=== PATIENT | female | born 1960 | race Caucasian/White ===

== ENCOUNTER 2017-03-05 02:29 | Inpatient (IN) | payer MEDICAID ==
[~2017-03-05] VITALS: Ht 157.5 cm; Wt 68.1 kg
[~2017-03-05 02:29] MED LIST: ALBU8.5H3 INH; AMLO10TA2 PO; AMOX1TAB64 PO; CLIN75CA2 PO; CYCL5TAB PO; HYDR-3138 PO; HYDR25TA6 PO; LISI40TA PO; LORA-445 PO; NAPR500T8 PO; OMEP-110 PO; PRED20TA PO; PRED25PO10 PO; PRED5TAB PO
[2017-03-05] MEDS ORDERED: ALBUTEROL/IPRATROPIUM 2.5MG/0.5MG, 3 ML ONE (02:43)
[2017-03-05] MEDS ORDERED: TIOT18CA INH (03:03)
[2017-03-05 03:28] LABS: HEMOGLOBIN 13.4 g/dL (11.7-16.4)
[2017-03-05 03:32] LABS: BLOOD UREA NITROGEN 13 mg/dL (7-18)
[2017-03-05 03:43] LABS: IS PT STATUS REG ER OR PRE ER? YES
[2017-03-05] MEDS ORDERED: FUROSEMIDE 40 MG/4 ML ONE (04:18)
[2017-03-05] MEDS ORDERED: ONDANSETRON 2MG/ML, 2ML IVPush PRN (04:30)
[2017-03-05] MEDS ORDERED: FUROSEMIDE 40 MG/4 ML IV ONE (04:30)
[2017-03-05] MEDS ORDERED: LORazepam 0.5MG TABLET PO PRN (06:00)
[2017-03-05] MEDS ORDERED: LABETALOL 5MG/ML, 20ML IV PRN (06:00)
[2017-03-05] MEDS ORDERED: POLYETHYLENE GLYCOL 17 GM PACKET PO PRN (06:00)
[2017-03-05] MEDS ORDERED: BISACODYL 10 MG SUPP PR PRN (06:00)
[2017-03-05] MEDS ORDERED: DOCUSATE 100 MG CAPSULE PO PRN (06:00)
[2017-03-05] MEDS ORDERED: ONDANSETRON ODT 4 MG PO PRN (06:00)
[2017-03-05] MEDS ORDERED: ENOXAPARIN 40 MG/0.4 ML ONE (06:14)
[2017-03-05] MEDS: ENOXAPARIN 40 MG/0.4 ML SQ SCH (06:16)
[2017-03-05 07:35] VITALS: BP 153/106
[2017-03-05] MEDS: ACETAMINOPHEN 325 MG TABLET PO PRN ×2 (08:08→20:57)
[2017-03-05] MEDS: FUROSEMIDE 40 MG/4 ML IV SCH ×2 (08:08→17:49)
[2017-03-05 08:10] VITALS: BP 133/90
[2017-03-05] MEDS: AMLODIPINE 5 MG TABLET PO SCH (09:43)
[2017-03-05] MEDS: OMEPRAZOLE 20 MG CAPSULE.DR PO SCH (09:43)
[2017-03-05] MEDS: CYCLOBENZAPRINE 10 MG TABLET PO SCH ×2 (09:43→20:38)
[2017-03-05] MEDS: LISINOPRIL 20 MG TABLET PO SCH (09:43)
[2017-03-05] MEDS: IPRATROPIUM 0.5 MG/2.5 ML INHA HHN SCH ×3 (11:15→20:26)
[2017-03-05 13:43] VITALS: BP 132/83
[2017-03-05 20:15] VITALS: BP 135/75
[2017-03-05 20:17] VITALS: BP 135/75
[2017-03-06] VITALS (7 sets, daily range): BP systolic 100–141; BP diastolic 62–78
[2017-03-06] MEDS: IPRATROPIUM 0.5 MG/2.5 ML INHA HHN SCH ×4 (03:00→20:00)
[2017-03-06] MEDS: ENOXAPARIN 40 MG/0.4 ML SQ SCH (06:15)
[2017-03-06] MEDS: FUROSEMIDE 40 MG/4 ML IV SCH ×2 (08:38→17:36)
[2017-03-06] MEDS: LISINOPRIL 20 MG TABLET PO SCH (08:41)
[2017-03-06] MEDS: CYCLOBENZAPRINE 10 MG TABLET PO SCH ×2 (08:41→20:23)
[2017-03-06] MEDS: AMLODIPINE 5 MG TABLET PO SCH (08:41)
[2017-03-06] MEDS: OMEPRAZOLE 20 MG CAPSULE.DR PO SCH (08:41)
[2017-03-06 12:01] LABS: BLOOD UREA NITROGEN 27 mg/dL (7-18)
[2017-03-06 12:12] LABS: IS PT STATUS REG ER OR PRE ER? NO
[2017-03-06] MEDS: ACETAMINOPHEN 325 MG TABLET PO PRN (15:59)
[2017-03-06] MEDS: CARVEDILOL 3.125 MG TABLET PO SCH (17:36)
[2017-03-06] MEDS: ATORVASTATIN 40 MG TABLET PO SCH (20:23)
[2017-03-07 01:21] VITALS: BP 112/71
[2017-03-07] MEDS: IPRATROPIUM 0.5 MG/2.5 ML INHA HHN SCH ×4 (02:10→19:40)
[2017-03-07 05:47] VITALS: BP 126/80
[2017-03-07 05:48] LABS: BLOOD UREA NITROGEN 34 mg/dL (7-18)
[2017-03-07] MEDS: ENOXAPARIN 40 MG/0.4 ML SQ SCH (05:51)
[2017-03-07] MEDS: CARVEDILOL 3.125 MG TABLET PO SCH ×2 (05:51→17:13)
[2017-03-07 07:00] VITALS: BP 112/73
[2017-03-07] MEDS: FUROSEMIDE 40 MG/4 ML IV SCH (07:30)
[2017-03-07] MEDS: CYCLOBENZAPRINE 10 MG TABLET PO SCH ×2 (08:26→20:52)
[2017-03-07] MEDS: OMEPRAZOLE 20 MG CAPSULE.DR PO SCH (08:27)
[2017-03-07] MEDS: LISINOPRIL 20 MG TABLET PO SCH (08:27)
[2017-03-07] MEDS: ACETAMINOPHEN 325 MG TABLET PO PRN ×2 (08:27→17:15)
[2017-03-07] MEDS: FUROSEMIDE 20 MG TABLET PO SCH (08:27)
[2017-03-07 13:42] VITALS: BP 120/76
[2017-03-07] MEDS ORDERED: POTASSIUM CHLORIDE 20 MEQ TAB.ER.PRT PO ONE (15:00)
[2017-03-07 15:38] LABS: BLOOD UREA NITROGEN 32 mg/dL (7-18)
[2017-03-07 17:12] VITALS: BP 122/81
[2017-03-07 18:52] VITALS: BP 106/70
[2017-03-07] MEDS: ATORVASTATIN 40 MG TABLET PO SCH (20:51)
[2017-03-08] MEDS: IPRATROPIUM 0.5 MG/2.5 ML INHA HHN SCH ×4 (02:25→21:05)
[2017-03-08 03:04] VITALS: BP 123/80
[2017-03-08] MEDS: CARVEDILOL 3.125 MG TABLET PO SCH ×2 (05:24→18:40)
[2017-03-08] MEDS: ENOXAPARIN 40 MG/0.4 ML SQ SCH (05:25)
[2017-03-08 07:33] VITALS: BP 112/73
[2017-03-08] MEDS ORDERED: REGADENOSON 0.4 MG/5 ML SYRINGE ONE (08:36)
[2017-03-08] MEDS: OMEPRAZOLE 20 MG CAPSULE.DR PO SCH (10:48)
[2017-03-08] MEDS: LISINOPRIL 20 MG TABLET PO SCH (10:48)
[2017-03-08] MEDS: CYCLOBENZAPRINE 10 MG TABLET PO SCH ×2 (10:48→20:47)
[2017-03-08] MEDS: FUROSEMIDE 20 MG TABLET PO SCH (10:48)
[2017-03-08 10:51] VITALS: BP 120/78
[2017-03-08 14:09] VITALS: BP 145/65
[2017-03-08 18:38] VITALS: BP 111/65
[2017-03-08 19:20] VITALS: BP 111/66
[2017-03-08] MEDS: ATORVASTATIN 40 MG TABLET PO SCH (20:47)
[2017-03-09 01:26] VITALS: BP 114/69
[2017-03-09] MEDS: IPRATROPIUM 0.5 MG/2.5 ML INHA HHN SCH ×2 (02:52→09:00)
[2017-03-09 05:07] LABS: HEMOGLOBIN 12.8 g/dL (11.7-16.4)
[2017-03-09 05:16] LABS: BLOOD UREA NITROGEN 31 mg/dL (7-18)
[2017-03-09] MEDS: CARVEDILOL 3.125 MG TABLET PO SCH (06:07)
[2017-03-09] MEDS: ENOXAPARIN 40 MG/0.4 ML SQ SCH (06:07)
[2017-03-09] MEDS: ACETAMINOPHEN 325 MG TABLET PO PRN (06:13)
[2017-03-09 06:56] VITALS: BP 122/76
[2017-03-09] MEDS: OMEPRAZOLE 20 MG CAPSULE.DR PO SCH (07:56)
[2017-03-09] MEDS: LISINOPRIL 20 MG TABLET PO SCH (07:56)
[2017-03-09] MEDS: FUROSEMIDE 20 MG TABLET PO SCH (07:57)
[2017-03-09] MEDS: CYCLOBENZAPRINE 10 MG TABLET PO SCH (07:57)
[2017-03-09 12:53] VITALS: BP 127/78
[2017-03-09] MEDS ORDERED: METH4TAB2 PO (13:27)
[2017-03-09] MEDS ORDERED: FURO20TA3 PO (13:27)
[2017-03-09] MEDS ORDERED: ATOR40TA78 PO (13:27)
[2017-03-09] MEDS ORDERED: POTA20TA89 PO (15:42)
[2017-03-09] MEDS ORDERED: CARV3.1212 PO (15:52)
== END 2017-03-09 16:28 | disposition home or self-care (01) | DRG 291 ==
LOC: ED 03:26 → EDIP 04:23 → 5SO 07:25 → DCLOUNGE 03-09 15:27
PROVIDERS: ADMIT Internal Medicine; ATTEND Internal Medicine
DX: I13.0 Hypertensive heart and chronic kidney disease with heart failure and stage 1 through stage 4 chronic kidney disease, or unspecified chronic kidney disease (principal); I50.41 Acute combined systolic (congestive) and diastolic (congestive) heart failure; J44.1 Chronic obstructive pulmonary disease with (acute) exacerbation; G89.29 Other chronic pain; M54.2 Cervicalgia; M54.9 Dorsalgia, unspecified; I42.9 Cardiomyopathy, unspecified; I27.2 Other secondary pulmonary hypertension; N18.3 Chronic kidney disease, stage 3 (moderate); R00.8 Other abnormalities of heart beat; F17.210 Nicotine dependence, cigarettes, uncomplicated; Z82.49 Family history of ischemic heart disease and other diseases of the circulatory system; Z98.51 Tubal ligation status; Z90.89 Acquired absence of other organs; Z88.7 Allergy status to serum and vaccine; Z79.899 Other long term (current) drug therapy; Z91.19 Patient's noncompliance with other medical treatment and regimen
CPT/HCPCS: 36415; 71010; 78452; 80048; 80061; 82040; 83880; 84443; 84484; 85025; 93005; 93017; 93306; 94640; 96372; 96374; J1650; J1940; J2785; J7644; A9502; C9898; J7512

== ENCOUNTER 2017-03-11 10:23 | Inpatient (IN) | payer MEDICAID ==
[~2017-03-11] VITALS: Ht 157.5 cm; Wt 67.7 kg
[~2017-03-11 10:23] MED LIST changes: +ATOR40TA78 PO; +CARV3.1212 PO; +FURO20TA3 PO; +METH4TAB2 PO; +POTA20TA89 PO; +TIOT18CA INH
[2017-03-11] MEDS ORDERED: SODIUM CHLORIDE FLUSH 10ML SYR IVF ONE (10:30)
[2017-03-11] MEDS ORDERED: PLEASE ENTER HEIGHT AND WEIGHT MC SCH (11:00)
[2017-03-11 11:11] LABS: BLOOD UREA NITROGEN 28 mg/dL (7-18)
[2017-03-11 11:16] LABS: ASPARTATE AMINO TRANSFERASE 8 U/L (15-37)
[2017-03-11 11:17] LABS: IS PT STATUS REG ER OR PRE ER? YES
[2017-03-11] MEDS ORDERED: NITROGLYCERIN OINT 2%, 1GM TP ONE ×2 (11:30→12:04)
[2017-03-11] MEDS ORDERED: FUROSEMIDE 40 MG/4 ML ONE (12:16)
[2017-03-11] MEDS ORDERED: FUROSEMIDE 40 MG/4 ML IV ONE (12:30)
[2017-03-11] MEDS ORDERED: POLYETHYLENE GLYCOL 17 GM PACKET PO PRN (13:00)
[2017-03-11] MEDS ORDERED: LORazepam 1MG TABLET PO PRN (13:00)
[2017-03-11] MEDS ORDERED: LABETALOL 5MG/ML, 20ML IVPush PRN (13:00)
[2017-03-11] MEDS ORDERED: ACETAMINOPHEN 325 MG TABLET PO PRN (13:00)
[2017-03-11] MEDS ORDERED: ENALAPRILAT 1.25 MG/ML, 2ML IV PRN (13:00)
[2017-03-11] MEDS ORDERED: MORPHINE SULFATE 4 MG/ML, 1ML IVPush PRN (13:00)
[2017-03-11] MEDS ORDERED: GUAIFENESIN/DM 200-20MG, 10ML UDC PO PRN (13:00)
[2017-03-11] MEDS ORDERED: LORazepam 0.5MG TABLET PO PRN (13:00)
[2017-03-11] MEDS ORDERED: DOCUSATE 100 MG CAPSULE PO PRN (13:00)
[2017-03-11] MEDS ORDERED: hydrALAzine 20 MG/ML, 1ML IV PRN (13:00)
[2017-03-11] MEDS ORDERED: ALBUTEROL SULFATE 2.5 MG/3 ML NPPB PRN (15:00)
[2017-03-11] MEDS ORDERED: ALBUTEROL/IPRATROPIUM 2.5MG/0.5MG, 3 ML ONE ×2 (15:02→19:54)
[2017-03-11] MEDS: POTASSIUM CHLORIDE 20 MEQ TAB.ER.PRT PO SCH (15:30)
[2017-03-11] MEDS ORDERED: IPRATROPIUM 0.5 MG/2.5 ML INHA NPPB SCH (15:30)
[2017-03-11] MEDS ORDERED: ALBUTEROL/IPRATROPIUM 2.5MG/0.5MG, 3 ML NPPB PRN (15:30)
[2017-03-11 15:31] LABS: IS PT STATUS REG ER OR PRE ER? YES
[2017-03-11] MEDS: LISINOPRIL 20 MG TABLET PO SCH (15:31)
[2017-03-11] MEDS: FUROSEMIDE 20 MG TABLET PO SCH (15:31)
[2017-03-11] MEDS ORDERED: LORazepam 0.5MG TABLET ONE (15:37)
[2017-03-11] MEDS: ENOXAPARIN 40 MG/0.4 ML SQ SCH (15:39)
[2017-03-11] MEDS: FUROSEMIDE 40 MG/4 ML IV SCH (17:00)
[2017-03-11] MEDS: ALBUTEROL/IPRATROPIUM 2.5MG/0.5MG, 3 ML NPPB SCH (19:57)
[2017-03-11] MEDS ORDERED: CARVEDILOL 3.125 MG TABLET PO SCH (21:00)
[2017-03-11] MEDS: SODIUM CHLORIDE FLUSH 10ML SYR IVF SCH (21:00)
[2017-03-11 21:46] LABS: IS PT STATUS REG ER OR PRE ER? NO
[2017-03-11] MEDS: CYCLOBENZAPRINE 10 MG TABLET PO SCH (22:37)
[2017-03-11] MEDS: ATORVASTATIN 40 MG TABLET PO SCH (23:39)
[2017-03-11] MEDS: CARVEDILOL 6.25 MG TABLET PO SCH (23:39)
[2017-03-12 02:10] VITALS: BP 112/63
[2017-03-12] MEDS: HYDROcodone/APAP 5/325 TABLET PO PRN ×2 (04:41→12:23)
[2017-03-12 05:05] LABS: BLOOD UREA NITROGEN 48 mg/dL (7-18)
[2017-03-12] MEDS: CARVEDILOL 6.25 MG TABLET PO SCH ×3 (06:00→21:13)
[2017-03-12 06:30] VITALS: BP 106/73
[2017-03-12] MEDS: ALBUTEROL/IPRATROPIUM 2.5MG/0.5MG, 3 ML NPPB SCH (07:51)
[2017-03-12] MEDS: CYCLOBENZAPRINE 10 MG TABLET PO SCH ×2 (08:02→21:09)
[2017-03-12] MEDS: LISINOPRIL 20 MG TABLET PO SCH (08:03)
[2017-03-12] MEDS: SODIUM CHLORIDE FLUSH 10ML SYR IVF SCH ×2 (08:03→21:09)
[2017-03-12] MEDS: SENNA/DOCUSATE TABLET PO SCH (08:03)
[2017-03-12] MEDS: POTASSIUM CHLORIDE 20 MEQ TAB.ER.PRT PO SCH (08:03)
[2017-03-12] MEDS: FUROSEMIDE 40 MG/4 ML IV SCH (08:03)
[2017-03-12] MEDS: FUROSEMIDE 20 MG TABLET PO SCH (08:05)
[2017-03-12] MEDS ORDERED: FUROSEMIDE 20 MG TABLET PO SCH (09:00)
[2017-03-12 09:13] VITALS: BP 97/63
[2017-03-12] MEDS: ENOXAPARIN 40 MG/0.4 ML SQ SCH (12:23)
[2017-03-12 14:04] VITALS: BP 98/67
[2017-03-12] MEDS: ONDANSETRON 2MG/ML, 2ML IVP PRN (19:39)
[2017-03-12] MEDS: ATORVASTATIN 40 MG TABLET PO SCH (21:10)
[2017-03-12 21:33] VITALS: BP 84/51
[2017-03-13 03:41] VITALS: BP 94/59
[2017-03-13] MEDS: CARVEDILOL 6.25 MG TABLET PO SCH ×3 (05:42→20:52)
[2017-03-13 05:59] LABS: BLOOD UREA NITROGEN 63 mg/dL (7-18)
[2017-03-13 07:07] VITALS: BP 92/62
[2017-03-13] MEDS: HYDROcodone/APAP 5/325 TABLET PO PRN ×3 (08:00→20:52)
[2017-03-13] MEDS: LISINOPRIL 20 MG TABLET PO SCH (09:00)
[2017-03-13 10:57] VITALS: BP 95/64
[2017-03-13] MEDS: SENNA/DOCUSATE TABLET PO SCH (10:59)
[2017-03-13] MEDS: POTASSIUM CHLORIDE 20 MEQ TAB.ER.PRT PO SCH (10:59)
[2017-03-13] MEDS: CYCLOBENZAPRINE 10 MG TABLET PO SCH ×2 (11:01→20:51)
[2017-03-13] MEDS: SODIUM CHLORIDE FLUSH 10ML SYR IVF SCH ×2 (11:01→20:51)
[2017-03-13] MEDS ORDERED: ENOXAPARIN 30 MG/0.3 ML SQ SCH (13:00)
[2017-03-13 14:00] VITALS: BP 99/66
[2017-03-13] MEDS: ONDANSETRON 2MG/ML, 2ML IVP PRN (15:31)
[2017-03-13 19:25] VITALS: BP 105/72
[2017-03-13] MEDS: ATORVASTATIN 40 MG TABLET PO SCH (20:52)
[2017-03-14 02:46] VITALS: BP 131/72
[2017-03-14 05:35] LABS: BLOOD UREA NITROGEN 52 mg/dL (7-18)
[2017-03-14] MEDS: CARVEDILOL 6.25 MG TABLET PO SCH ×3 (05:41→22:04)
[2017-03-14 07:40] VITALS: BP 104/67
[2017-03-14] MEDS: SENNA/DOCUSATE TABLET PO SCH (09:00)
[2017-03-14] MEDS ORDERED: SODIUM CHLORIDE 0.9% 1,000 ML IV ONE (09:39)
[2017-03-14] MEDS: CYCLOBENZAPRINE 10 MG TABLET PO SCH ×2 (10:26→22:03)
[2017-03-14] MEDS: POTASSIUM CHLORIDE 20 MEQ TAB.ER.PRT PO SCH (10:26)
[2017-03-14] MEDS: SODIUM CHLORIDE FLUSH 10ML SYR IVF SCH ×2 (10:27→22:02)
[2017-03-14] MEDS: HYDROcodone/APAP 5/325 TABLET PO PRN ×3 (10:34→23:51)
[2017-03-14] MEDS: ENOXAPARIN 40 MG/0.4 ML SQ SCH (12:50)
[2017-03-14] MEDS ORDERED: FENTANYL PF 100 MCG/2ML ONE ×2 (13:09→14:27)
[2017-03-14] MEDS ORDERED: MIDAZOLAM 1 MG/ML, 5ML ONE (13:09)
[2017-03-14] MEDS ORDERED: LIDOCAINE 2%, 20ML ONE (13:10)
[2017-03-14] MEDS ORDERED: TICAGRELOR 90 MG TABLET ONE (13:10)
[2017-03-14] MEDS ORDERED: VERAPAMIL 2.5 MG/ML, 2ML ONE (13:10)
[2017-03-14] MEDS ORDERED: HEPARIN 1,000 UNITS/ML, 10ML ONE (13:10)
[2017-03-14] MEDS ORDERED: BIVALIRUDIN 250 MG ONE (13:10)
[2017-03-14 14:59] VITALS: BP 127/85
[2017-03-14 15:39] VITALS: BP 111/72
[2017-03-14 19:56] VITALS: BP 103/68
[2017-03-14] MEDS: ATORVASTATIN 40 MG TABLET PO SCH (22:03)
[2017-03-15 01:30] VITALS: BP 103/67
[2017-03-15] MEDS: HYDROcodone/APAP 5/325 TABLET PO PRN ×3 (05:46→17:57)
[2017-03-15] MEDS: CARVEDILOL 6.25 MG TABLET PO SCH ×2 (05:46→15:08)
[2017-03-15 07:40] VITALS: BP 110/69
[2017-03-15] MEDS: SENNA/DOCUSATE TABLET PO SCH (09:00)
[2017-03-15] MEDS ORDERED: OMEPRAZOLE 20 MG CAPSULE.DR PO SCH (09:00)
[2017-03-15] MEDS: POTASSIUM CHLORIDE 20 MEQ TAB.ER.PRT PO SCH (09:44)
[2017-03-15] MEDS: CYCLOBENZAPRINE 10 MG TABLET PO SCH (09:44)
[2017-03-15] MEDS: SODIUM CHLORIDE FLUSH 10ML SYR IVF SCH (09:45)
[2017-03-15] MEDS ORDERED: FUROSEMIDE 20 MG TABLET PO SCH (10:30)
[2017-03-15 11:37] VITALS: BP 127/76
[2017-03-15 14:04] VITALS: BP 130/79
[2017-03-15] MEDS: ENOXAPARIN 40 MG/0.4 ML SQ SCH (15:08)
== END 2017-03-15 18:39 | disposition home or self-care (01) | DRG 286 ==
LOC: ED 10:44 → EDIP 12:15 → 5SO 20:43
PROVIDERS: ADMIT Family Medicine; ATTEND Family Medicine
PROC: 4A023N7 Measurement of Cardiac Sampling and Pressure, Left Heart, Percutaneous Approach (ICD-10-PCS; principal; 2017-03-14)
PROC: B2111ZZ Fluoroscopy of Multiple Coronary Arteries using Low Osmolar Contrast (ICD-10-PCS; 2017-03-14)
DX: I13.0 Hypertensive heart and chronic kidney disease with heart failure and stage 1 through stage 4 chronic kidney disease, or unspecified chronic kidney disease (principal); I50.43 Acute on chronic combined systolic (congestive) and diastolic (congestive) heart failure; J44.1 Chronic obstructive pulmonary disease with (acute) exacerbation; I42.9 Cardiomyopathy, unspecified; N18.3 Chronic kidney disease, stage 3 (moderate); M41.9 Scoliosis, unspecified; I27.2 Other secondary pulmonary hypertension; G89.29 Other chronic pain; E78.5 Hyperlipidemia, unspecified; M54.2 Cervicalgia; M54.9 Dorsalgia, unspecified; Z88.7 Allergy status to serum and vaccine; Z79.899 Other long term (current) drug therapy; Z90.89 Acquired absence of other organs; Z98.51 Tubal ligation status; Z91.19 Patient's noncompliance with other medical treatment and regimen; Z87.891 Personal history of nicotine dependence
CPT/HCPCS: 36415; 71010; 80048; 80053; 83880; 84484; 85025; 85610; 85730; 87324; 93005; 93458; 94640; 96374; C1769; C1894; J0583; J1644; J1650; J1940; J2250; J2405; J3010; J3490; J7620; J7644; Q9967

== ENCOUNTER 2018-05-26 05:12 | Emergency (ER) | payer MEDICAID ==
[~2018-05-26] VITALS: Ht 157.5 cm; Wt 80.0 kg
[~2018-05-26 05:12] MED LIST changes: -ALBU8.5H3 INH; +ALBU8.5H8 INH; -HYDR-3138 PO; +HYDR-3237 PO
[2018-05-26] MEDS ORDERED: ONDANSETRON ODT 4 MG ONE (05:34)
[2018-05-26] MEDS ORDERED: HYDROmorphone 2 MG/ML, 1ML ONE (05:35)
[2018-05-26] MEDS: HYDROmorphone 1 MG/ML, 1ML IM PRN ×2 (05:43→05:58)
[2018-05-26] MEDS ORDERED: ONDANSETRON ODT 4 MG PO ONE (06:00)
[2018-05-26] MEDS ORDERED: SODIUM CHLORIDE FLUSH 10ML SYR IVF ONE (07:00)
[2018-05-26] MEDS ORDERED: CARV12.52 PO (07:20)
[2018-05-26] MEDS ORDERED: LISI-170 PO (07:20)
[2018-05-26 07:26] LABS: BASOPHILS # (AUTO) 0.02 x10^3/uL (0-0.1); BASOPHILS % (AUTO) 0 % (0-1); EOSINOPHILS # (AUTO) 0.15 x10^3/uL (0-0.4); EOSINOPHILS % (AUTO) 2 % (1-7); LYMPHOCYTES % (AUTO) 40 % (22-44); MD NO; MEAN CORPUSCULAR HEMOGLOBIN 32.6 pg (27.0-34.8); MEAN CORPUSCULAR HGB CONC 33.6 g/dL (32.4-35.8); MEAN CORPUSCULAR VOLUME 97.1 fL (80-100); MEAN PLATELET VOLUME 7.9 fL (7.4-10.4); MONOCYTES # (AUTO) 0.41 x10^3/uL (0.2-0.8); MONOCYTES % (AUTO) 7 % (2-9); NEUTROPHILS # (AUTO) 3.05 x10^3/uL (1.8-6.8); NEUTROPHILS % (AUTO) 51 % (42-75); PLATELET COUNT 298 x10^3/uL (130-400); RED BLOOD COUNT 4.24 x10^6/uL (3.82-5.3); RED CELL DISTRIBUTION WIDTH 13.8 % (9.6-15.2)
[2018-05-26 07:38] LABS: ANION GAP 7 mmol/L (5-15); CHLORIDE 112 mmol/L (98-107)
[2018-05-26 07:40] LABS: CREATININE 1.09 mg/dL (0.55-1.02)
[2018-05-26] MEDS ORDERED: [UNRECOGNIZED DRUG - REMARK] XX SCH (08:30)
[2018-05-26] MEDS ORDERED: MORPHINE SULFATE 4 MG/ML, 1ML IVPush ONE (08:30)
[2018-05-26] MEDS ORDERED: MORPHINE SULFATE 4 MG/ML, 1ML ONE (08:34)
[2018-05-26] MEDS ORDERED: OMNIPAQUE 350 MG/ML, 100ML BOTTLE ONE (08:51)
[2018-05-26] MEDS ORDERED: HYDROcodone/APAP 5/325 TABLET ONE (09:10)
[2018-05-26 09:12] VITALS: BP 154/90
[2018-05-26] MEDS ORDERED: HYDROcodone/APAP 5/325 TABLET PO ONE (09:30)
== END 2018-05-26 09:37 | disposition home or self-care (01) ==
LOC: ED 05:56
DX: S29.011A Strain of muscle and tendon of front wall of thorax, initial encounter (principal); J44.9 Chronic obstructive pulmonary disease, unspecified; I11.0 Hypertensive heart disease with heart failure; I50.9 Heart failure, unspecified; M54.9 Dorsalgia, unspecified; G89.29 Other chronic pain; X58.XXXA Exposure to other specified factors, initial encounter; Y93.89 Activity, other specified; Y99.8 Other external cause status; Y92.009 Unspecified place in unspecified non-institutional (private) residence as the place of occurrence of the external cause
CPT/HCPCS: 36415; 71250; 71275; 80048; 82040; 85025; 93005; 96372; 96374; 99285; J1170; Q0162; Q9967

== ENCOUNTER → 2019-06-11 | Outpatient (CLI) | payer MEDICAID ==
[~2019-06-11] MED LIST changes: +ACET325T14 PO; -AMLO10TA2 PO; +AMLO10TA8 PO; +CARV12.52 PO; +LIDO700A20 TD; +LISI-170 PO; +LISI5TAB7 PO; +NICO-485 TD; +OMNIPAQUE 350 MG/ML, 100ML BOTTLE ONE; +ONDA4TAB7 PO; +OXYC1TAB7 PO
== END | disposition home or self-care (01) ==
LOC: CFH 13:15
PROVIDERS: ATTEND Urology
DX: D49.519 Neoplasm of unspecified behavior of unspecified kidney (principal); R06.02 Shortness of breath; I70.0 Atherosclerosis of aorta
CPT/HCPCS: 74178; Q9967

== ENCOUNTER 2019-06-27 10:47 | Inpatient (IN) | payer MEDICAID ==
[~2019-06-27] VITALS: Ht 157.5 cm; Wt 74.4 kg
[2019-07-02 12:48] VITALS: BP 98/68
== END 2019-07-02 18:15 | DRG 480 ==
LOC: ED 12:28 → EDIP 13:14 → 4NOR 16:43
PROVIDERS: ADMIT Family Medicine; ATTEND Family Medicine
PROC: 0QSC04Z Reposition Left Lower Femur with Internal Fixation Device, Open Approach (ICD-10-PCS; principal; 2019-06-27)
DX: S72.452A Displaced supracondylar fracture without intracondylar extension of lower end of left femur, initial encounter for closed fracture (principal); N17.0 Acute kidney failure with tubular necrosis; I13.0 Hypertensive heart and chronic kidney disease with heart failure and stage 1 through stage 4 chronic kidney disease, or unspecified chronic kidney disease; I42.9 Cardiomyopathy, unspecified; I50.32 Chronic diastolic (congestive) heart failure; E78.5 Hyperlipidemia, unspecified; F41.9 Anxiety disorder, unspecified; J44.9 Chronic obstructive pulmonary disease, unspecified; M81.0 Age-related osteoporosis without current pathological fracture; N18.3 Chronic kidney disease, stage 3 (moderate); W01.0XXA Fall on same level from slipping, tripping and stumbling without subsequent striking against object, initial encounter; Y93.89 Activity, other specified; Y92.89 Other specified places as the place of occurrence of the external cause; Z82.62 Family history of osteoporosis; Z98.51 Tubal ligation status; Z88.7 Allergy status to serum and vaccine; Z82.49 Family history of ischemic heart disease and other diseases of the circulatory system; Z72.0 Tobacco use
CPT/HCPCS: 36415; 73502; 73552; 73560; 73630; 76000; 96374; 96375; 99285; J3490; 71045; 80048; 81001; 82040; 85025; 85610; 85730; 87086; 93005; C1713; G0378; J0690; J1100; J1170; J1644; J2175; J2250; J2405; J2704; J3010; J7120; J0330; J2270; J2370; J7030

== ENCOUNTER 2019-07-05 19:07 | Observation (INO) | payer MEDICAID ==
[~2019-07-05] VITALS: Ht 157.5 cm; Wt 70.0 kg
[2019-07-06 06:45] VITALS: BP 106/64
== END 2019-07-06 15:05 ==
LOC: ED 21:07 → EDIP 21:55 → INTOOBSV 21:55 → 5SO 23:25
PROVIDERS: ADMIT Family Medicine; ATTEND Family Medicine
DX: S22.41XD Multiple fractures of ribs, right side, subsequent encounter for fracture with routine healing (principal); S72.92XD Unspecified fracture of left femur, subsequent encounter for closed fracture with routine healing; R07.89 Other chest pain; J44.1 Chronic obstructive pulmonary disease with (acute) exacerbation; I13.0 Hypertensive heart and chronic kidney disease with heart failure and stage 1 through stage 4 chronic kidney disease, or unspecified chronic kidney disease; I50.9 Heart failure, unspecified; N18.9 Chronic kidney disease, unspecified; E78.5 Hyperlipidemia, unspecified; F41.9 Anxiety disorder, unspecified; I42.9 Cardiomyopathy, unspecified; J43.9 Emphysema, unspecified; M81.0 Age-related osteoporosis without current pathological fracture; Z87.891 Personal history of nicotine dependence; X58.XXXD Exposure to other specified factors, subsequent encounter
CPT/HCPCS: 36415; 71045; 71275; 80053; 81001; 82607; 83605; 83880; 84145; 84484; 85025; 87040; 87077; 87086; 87186; 93005; 96372; 96374; 96375; 96376; 97162; 97166; 97530; 97535; 99284; G0378; J1650; J2270; J2405; J7030; Q9967

== ENCOUNTER 2019-11-12 09:47 | Inpatient (IN) | payer MEDICAID ==
[~2019-11-12] VITALS: Ht 157.5 cm; Wt 72.2 kg
[~2019-11-12 09:47] MED LIST changes: +CITA10TA8 PO; +DOCU-131 PO; +LISI-167 PO; +NITR100C PO; -OMNIPAQUE 350 MG/ML, 100ML BOTTLE ONE
--- NOTE | 2019-11-12 10:12 | NUR ---
PT TO ED FOR RIGHT MID TO LOWER BACK PAIN AFTER RIDING IN CAR AND GOING OVER A BUMP ON TUESDAY. PT STATES TYLENOL AND MOTRIN AREN'T HELPING. PT REPORTS PAIN WORSE WITH MOVEMENT. PT CONNECTED TO MONITORS. RODDY THRASHER, TO BS FOR ASSESSMENT. AWAITING ORDERS.
[2019-11-12] MEDS ORDERED: ONDANSETRON 2MG/ML, 2ML IVPush ONE (10:30)
[2019-11-12] MEDS ORDERED: SODIUM CHLORIDE FLUSH 10ML SYR IVF ONE (10:30)
[2019-11-12] MEDS ORDERED: DIAZEPAM 5 MG/ML, 2ML IVPush ONE (10:30)
[2019-11-12] MEDS ORDERED: MORPHINE SULFATE 4 MG/ML, 1ML IVPush PRN (10:30)
[2019-11-12 10:56] LABS: BASOPHILS # (AUTO) 0.03 x10^3/uL (0-0.1); BASOPHILS % (AUTO) 1 % (0-1); EOSINOPHILS # (AUTO) 0.14 x10^3/uL (0-0.4); EOSINOPHILS % (AUTO) 2 % (1-7); LYMPHOCYTES # (AUTO) 2.49 x10^3/uL (1-3.4); LYMPHOCYTES % (AUTO) 40 % (22-44); MD NO; MEAN CORPUSCULAR HEMOGLOBIN 31.3 pg (27.0-34.8); MEAN CORPUSCULAR HGB CONC 33.4 g/dL (32.4-35.8); MEAN CORPUSCULAR VOLUME 93.8 fL (80-100); MEAN PLATELET VOLUME 8.1 fL (7.4-10.4); MONOCYTES # (AUTO) 0.44 x10^3/uL (0.2-0.8); MONOCYTES % (AUTO) 7 % (2-9); NEUTROPHILS # (AUTO) 3.16 x10^3/uL (1.8-6.8); NEUTROPHILS % (AUTO) 51 % (42-75); PLATELET COUNT 293 x10^3/uL (130-400); RED CELL DISTRIBUTION WIDTH 14.5 % (9.6-15.2)
[2019-11-12] MEDS ORDERED: ONDANSETRON 2MG/ML, 2ML ONE (11:00)
[2019-11-12] MEDS ORDERED: MORPHINE SULFATE 4 MG/ML, 1ML ONE (11:00)
--- NOTE | 2019-11-12 11:06 | NUR ---
tech x2 to bs to help pt to bs commode to get clean catch urine sample.
[2019-11-12 11:07] LABS: ALANINE AMINOTRANSFERASE 28 U/L (12-78); CALCIUM 9.3 mg/dL (8.5-10.1)
[2019-11-12 11:11] LABS: ALKALINE PHOSPHATASE 122 U/L (45-117); ANION GAP 9 mmol/L (5-15); BILIRUBIN,TOTAL 0.4 mg/dL (0.2-1.0); CHLORIDE 111 mmol/L (98-107); CREATININE 1.07 mg/dL (0.55-1.02); TOTAL PROTEIN 7.8 g/dL (6.4-8.2); TROPONIN I < 0.015 ng/mL (0.000-0.045)
--- NOTE | 2019-11-12 11:20 | NUR ---
pt resting in room. vss. pt medicated per mar and states pain is still there but decreased and tolerable now. clean catch ua collected and sent. awaiting results.
[2019-11-12 11:24] LABS: MICROSCOPIC AUTO
[2019-11-12 11:25] LABS: CULTURE INDICATED? YES
[2019-11-12] MEDS ORDERED: CEFTRIAXONE PMX 1GM/50ML 50 ML IV ONE (12:00)
[2019-11-12] MEDS ORDERED: CEFTRIAXONE PMX 1GM/50ML 50 ML ONE (12:13)
--- NOTE | 2019-11-12 12:18 | NUR ---
PT RESTING IN ROOM. VSS. PT APPREARS IN NO DISTRESS WHILE STAFF IS NOT IN THE ROOM. WHEN STAFF ENTERS, PT BEGINS BREATHING QUICKLY AND HEAVILY AND BEGINS REPORTING NEW PAIN THAT WAS NOT PREVIOUSLY REPORTED. NO CHANGES IN VS. PT REMINDED TO SLOW BREATHING. IBAVX STARTED. NO NEEDS EPXRESSED. CALL LIGHT WITHIN REACH. PLAN TO ADMIT. AWAITING ROOM ASSIGNMENT.
--- NOTE | 2019-11-12 12:51 | NUR ---
hospitalist at at this time. report to TAYLOR Walters. pt ready for transport.
[2019-11-12] MEDS ORDERED: IBUPROFEN 600 MG TABLET PO PRN (13:30)
[2019-11-12] MEDS ORDERED: LIDODERM 5% PATCH TD PRN (13:30)
[2019-11-12] MEDS ORDERED: ONDANSETRON ODT 4 MG PO PRN (13:30)
[2019-11-12] MEDS ORDERED: morphine SULFATE 10 MG/ML, 1ML IVPush PRN (13:30)
[2019-11-12] MEDS ORDERED: NICOTINE 7 MG/24 HR PATCH.TD24 TD PRN (13:30)
[2019-11-12] MEDS ORDERED: ENALAPRILAT 1.25 MG/ML, 2ML IVPush PRN (13:30)
[2019-11-12] MEDS ORDERED: ACETAMINOPHEN 325 MG TABLET PO PRN (13:30)
[2019-11-12] MEDS ORDERED: TEMPLATE NON-FORMULARY MED. (Albuterol Sulfate (Proair Hfa) 0 PUFFS) INH PRN (14:00)
[2019-11-12] MEDS ORDERED: ALBUTEROL SULFATE 2.5 MG/3 ML NPPB PRN (14:30)
[2019-11-12] MEDS: BACLOFEN 10 MG TABLET PO PRN (14:34)
[2019-11-12] MEDS: HYDROcodone/APAP 5/325 TABLET PO PRN ×3 (14:34→20:45)
[2019-11-12] MEDS: ENOXAPARIN 40 MG/0.4 ML SQ SCH (14:35)
[2019-11-12 14:44] VITALS: BP 138/86
[2019-11-12 18:58] VITALS: BP 103/67
[2019-11-12 21:12] VITALS: BP 129/81
[2019-11-12] MEDS: ATORVASTATIN 40 MG TABLET PO SCH (21:15)
[2019-11-12] MEDS: CARVEDILOL 3.125 MG TABLET PO SCH (21:15)
[2019-11-13 01:41] VITALS: BP 96/63
[2019-11-13] MEDS: HYDROcodone/APAP 5/325 TABLET PO PRN ×2 (01:52→06:31)
[2019-11-13] MEDS: BACLOFEN 10 MG TABLET PO PRN (05:40)
[2019-11-13 06:37] LABS: ANION GAP 6 mmol/L (5-15); CALCIUM 9.1 mg/dL (8.5-10.1); CHLORIDE 109 mmol/L (98-107)
[2019-11-13 07:01] VITALS: BP 122/73
[2019-11-13] MEDS: POTASSIUM CHLORIDE 20 MEQ TAB.ER.PRT PO SCH (09:04)
[2019-11-13] MEDS: CARVEDILOL 3.125 MG TABLET PO SCH ×2 (09:05→20:19)
[2019-11-13] MEDS: FUROSEMIDE 20 MG TABLET PO SCH (09:05)
[2019-11-13] MEDS: LISINOPRIL 5 MG TABLET PO SCH (09:06)
[2019-11-13] MEDS: SENNA/DOCUSATE TABLET PO SCH (09:06)
[2019-11-13] MEDS: CYCLOBENZAPRINE 10 MG TABLET PO SCH ×3 (09:06→20:18)
[2019-11-13] MEDS: DIAZEPAM 2 MG TABLET PO PRN ×2 (11:01→16:05)
[2019-11-13 13:44] VITALS: BP 123/71
[2019-11-13] MEDS: ENOXAPARIN 40 MG/0.4 ML SQ SCH (16:00)
[2019-11-13] MEDS: SODIUM CHLORIDE 0.9% 1,000 ML IV SCH (16:50)
[2019-11-13 19:04] VITALS: BP 130/77
[2019-11-13] MEDS: ATORVASTATIN 40 MG TABLET PO SCH (20:18)
[2019-11-14] MEDS: HYDROcodone/APAP 5/325 TABLET PO PRN ×4 (01:38→20:05)
[2019-11-14 01:53] VITALS: BP 143/85
[2019-11-14 06:12] LABS: ANION GAP 7 mmol/L (5-15); CALCIUM 8.8 mg/dL (8.5-10.1); CHLORIDE 110 mmol/L (98-107); CREATININE 1.03 mg/dL (0.55-1.02)
[2019-11-14 07:59] VITALS: BP 150/95
[2019-11-14] MEDS: LISINOPRIL 5 MG TABLET PO SCH (08:16)
[2019-11-14] MEDS: CARVEDILOL 3.125 MG TABLET PO SCH ×2 (08:16→20:06)
[2019-11-14] MEDS: FUROSEMIDE 20 MG TABLET PO SCH (08:17)
[2019-11-14] MEDS: CYCLOBENZAPRINE 10 MG TABLET PO SCH ×3 (08:17→23:10)
[2019-11-14] MEDS: SENNA/DOCUSATE TABLET PO SCH (08:17)
[2019-11-14] MEDS: POTASSIUM CHLORIDE 20 MEQ TAB.ER.PRT PO SCH (08:17)
[2019-11-14 14:00] VITALS: BP 142/77
[2019-11-14] MEDS: DIAZEPAM 2 MG TABLET PO PRN (15:41)
[2019-11-14] MEDS: ENOXAPARIN 40 MG/0.4 ML SQ SCH (16:27)
[2019-11-14] MEDS: SODIUM CHLORIDE 0.9% 1,000 ML IV SCH (16:27)
[2019-11-14 19:00] VITALS: BP 144/84
[2019-11-14] MEDS: ATORVASTATIN 40 MG TABLET PO SCH (20:05)
[2019-11-15 01:52] VITALS: BP 147/81
[2019-11-15] MEDS: DIAZEPAM 2 MG TABLET PO PRN (05:12)
[2019-11-15 07:08] VITALS: BP 158/84
[2019-11-15] MEDS: LISINOPRIL 5 MG TABLET PO SCH (08:38)
[2019-11-15] MEDS: CARVEDILOL 3.125 MG TABLET PO SCH ×2 (08:38→21:52)
[2019-11-15] MEDS: SENNA/DOCUSATE TABLET PO SCH (08:38)
[2019-11-15] MEDS: POTASSIUM CHLORIDE 20 MEQ TAB.ER.PRT PO SCH (08:39)
[2019-11-15] MEDS: FUROSEMIDE 20 MG TABLET PO SCH (08:39)
[2019-11-15] MEDS: HYDROcodone/APAP 5/325 TABLET PO PRN ×4 (08:39→21:51)
[2019-11-15] MEDS: CYCLOBENZAPRINE 10 MG TABLET PO SCH ×3 (08:49→21:51)
[2019-11-15 09:21] VITALS: BP 153/90
[2019-11-15] MEDS: PANTOPRAZOLE 20MG TABLET PO SCH (10:28)
[2019-11-15] MEDS: IBUPROFEN 600 MG TABLET PO SCH ×3 (11:22→21:00)
[2019-11-15 12:40] VITALS: BP 140/89
[2019-11-15] MEDS: SODIUM CHLORIDE 0.9% 1,000 ML IV SCH (13:38)
[2019-11-15] MEDS: ENOXAPARIN 40 MG/0.4 ML SQ SCH (13:38)
[2019-11-15] MEDS ORDERED: GABAPENTIN 300 MG CAPSULE PO ONE (17:30)
[2019-11-15 20:35] VITALS: BP 140/88
[2019-11-15] MEDS: ATORVASTATIN 40 MG TABLET PO SCH (21:51)
[2019-11-16 00:39] VITALS: BP 103/66
[2019-11-16] MEDS: IBUPROFEN 600 MG TABLET PO SCH ×2 (05:43→11:00)
[2019-11-16] MEDS: HYDROcodone/APAP 5/325 TABLET PO PRN ×2 (05:45→10:18)
[2019-11-16] MEDS: PANTOPRAZOLE 20MG TABLET PO SCH (05:45)
[2019-11-16 07:20] VITALS: BP 120/71
[2019-11-16] MEDS: GABAPENTIN 300 MG CAPSULE PO SCH ×2 (09:49→09:51)
[2019-11-16] MEDS: SENNA/DOCUSATE TABLET PO SCH (09:49)
[2019-11-16] MEDS: POTASSIUM CHLORIDE 20 MEQ TAB.ER.PRT PO SCH (09:49)
[2019-11-16] MEDS: CYCLOBENZAPRINE 10 MG TABLET PO SCH (09:49)
[2019-11-16] MEDS: LISINOPRIL 5 MG TABLET PO SCH (09:50)
[2019-11-16] MEDS: CARVEDILOL 3.125 MG TABLET PO SCH (10:18)
[2019-11-16] MEDS: FUROSEMIDE 20 MG TABLET PO SCH (10:18)
[2019-11-16 10:30] LABS: BASOPHILS # (AUTO) 0.04 x10^3/uL (0-0.1); BASOPHILS % (AUTO) 1 % (0-1); EOSINOPHILS # (AUTO) 0.12 x10^3/uL (0-0.4); EOSINOPHILS % (AUTO) 2 % (1-7); LYMPHOCYTES # (AUTO) 1.84 x10^3/uL (1-3.4); LYMPHOCYTES % (AUTO) 31 % (22-44); MD NO; MEAN CORPUSCULAR HEMOGLOBIN 32.3 pg (27.0-34.8); MEAN CORPUSCULAR HGB CONC 33.4 g/dL (32.4-35.8); MEAN CORPUSCULAR VOLUME 96.7 fL (80-100); MEAN PLATELET VOLUME 7.8 fL (7.4-10.4); MONOCYTES # (AUTO) 0.45 x10^3/uL (0.2-0.8); MONOCYTES % (AUTO) 8 % (2-9); NEUTROPHILS # (AUTO) 3.49 x10^3/uL (1.8-6.8); NEUTROPHILS % (AUTO) 59 % (42-75); PLATELET COUNT 258 x10^3/uL (130-400); RED BLOOD COUNT 3.86 x10^6/uL (3.82-5.3); RED CELL DISTRIBUTION WIDTH 14.6 % (9.6-15.2)
[2019-11-16 10:37] LABS: CALCIUM 8.5 mg/dL (8.5-10.1); CHLORIDE 115 mmol/L (98-107)
[2019-11-16 10:41] LABS: ANION GAP 6 mmol/L (5-15); CREATININE 1.03 mg/dL (0.55-1.02)
[2019-11-16] MEDS ORDERED: ALENDRONATE 70 MG TABLET PO SCH (12:01)
[2019-11-16] MEDS ORDERED: HYDR-3237 PO (12:15)
[2019-11-16] MEDS ORDERED: CA C1TAB35 PO (12:15)
[2019-11-16] MEDS ORDERED: DIAZ2TAB3 PO (12:15)
[2019-11-16] MEDS ORDERED: GABA300C10 PO (12:15)
[2019-11-16] MEDS ORDERED: ALEN70TA6 PO (12:15)
[2019-11-16] MEDS ORDERED: CYCL-259 PO (12:15)
[2019-11-16] MEDS: DIAZEPAM 2 MG TABLET PO PRN (13:34)
== END 2019-11-16 14:41 | DRG 347 ==
LOC: ED 13:00 → EDIP 13:37 → 3N 13:51
PROVIDERS: ADMIT Internal Medicine; ATTEND Internal Medicine
DX: M80.88XA Other osteoporosis with current pathological fracture, vertebra(e), initial encounter for fracture (principal); I11.0 Hypertensive heart disease with heart failure; I50.32 Chronic diastolic (congestive) heart failure; N12 Tubulo-interstitial nephritis, not specified as acute or chronic; E78.5 Hyperlipidemia, unspecified; Z82.49 Family history of ischemic heart disease and other diseases of the circulatory system; Z83.6 Family history of other diseases of the respiratory system; Z82.3 Family history of stroke; J43.9 Emphysema, unspecified; Z79.899 Other long term (current) drug therapy; Z87.440 Personal history of urinary (tract) infections; Z87.891 Personal history of nicotine dependence; Z88.7 Allergy status to serum and vaccine; Z88.8 Allergy status to other drugs, medicaments and biological substances
CPT/HCPCS: 36415; 71045; 72128; 72131; 72146; 80048; 80053; 81001; 84484; 85025; 87077; 87086; 87186; 93005; 96365; 96375; G0378; J0696; J1650; J2405; J2270; J7030

== ENCOUNTER 2020-04-11 11:57 | Emergency (ER) | payer MEDICAID ==
[~2020-04-11] VITALS: Ht 157.5 cm; Wt 68.9 kg
[~2020-04-11 11:57] MED LIST changes: +ALEN70TA6 PO; +CA C1TAB35 PO; +CYCL-259 PO; +DIAZ2TAB3 PO; +GABA300C10 PO
--- NOTE | 2020-04-11 13:56 | NUR ---
PT HAS CO RIGHT KIDNEY PAIN FOR 1 WEEK, PAIN WORSENED TODAY. PT PAIN 10/10. DENIES DYSURIA, HEMATURIA. PT STATES SHE HAD CYST ON KIDNEY. DENIES CP, SOB, COUGH. PT NOT IN RESP DISTRESS. PACS SPECIALIST IN PLACE. VSS. TO SBA TO [facility].
[2020-04-11] MEDS ORDERED: ONDANSETRON 2MG/ML, 2ML IVPush ONE (14:00)
[2020-04-11] MEDS ORDERED: SODIUM CHLORIDE FLUSH 10ML SYR IVF ONE (14:00)
[2020-04-11] MEDS ORDERED: MORPHINE SULFATE 4 MG/ML, 1ML ONE ×2 (14:10→15:25)
[2020-04-11] MEDS ORDERED: ONDANSETRON 2MG/ML, 2ML ONE (14:10)
[2020-04-11 14:16] LABS: MICROSCOPIC NOT IND
[2020-04-11 14:18] LABS: BASOPHILS # (AUTO) 0.02 x10^3/uL (0-0.1); BASOPHILS % (AUTO) 0 % (0-1); EOSINOPHILS # (AUTO) 0.08 x10^3/uL (0-0.4); EOSINOPHILS % (AUTO) 1 % (1-7); LYMPHOCYTES # (AUTO) 2.21 x10^3/uL (1-3.4); LYMPHOCYTES % (AUTO) 28 % (22-44); MD NO; MEAN CORPUSCULAR HEMOGLOBIN 32.8 pg (27.0-34.8); MEAN CORPUSCULAR HGB CONC 33.7 g/dL (32.4-35.8); MEAN PLATELET VOLUME 7.9 fL (7.4-10.4); MONOCYTES # (AUTO) 0.57 x10^3/uL (0.2-0.8); MONOCYTES % (AUTO) 7 % (2-9); NEUTROPHILS % (AUTO) 64 % (42-75); PLATELET COUNT 293 x10^3/uL (130-400); RED BLOOD COUNT 4.39 x10^6/uL (3.82-5.3); RED CELL DISTRIBUTION WIDTH 14.1 % (9.6-15.2)
[2020-04-11] MEDS: MORPHINE SULFATE 4 MG/ML, 1ML IVPush PRN ×2 (14:18→15:26)
[2020-04-11 14:26] LABS: ALANINE AMINOTRANSFERASE 19 U/L (12-78); ANION GAP 5 mmol/L (5-15); CALCIUM 9.5 mg/dL (8.5-10.1); CHLORIDE 104 mmol/L (98-107)
[2020-04-11 14:29] LABS: ALKALINE PHOSPHATASE 111 U/L (45-117); BILIRUBIN,TOTAL 0.5 mg/dL (0.2-1.0); TOTAL PROTEIN 7.8 g/dL (6.4-8.2)
--- NOTE | 2020-04-11 14:48 | NUR ---
IV ESTABLISHED. MEDICATED FOR PAIN. POC FOR CT. VSS, CALL LIGHT IN REACH. BED RAILS UP X2
--- NOTE | 2020-04-11 15:30 | NUR ---
PT CO PAIN, BACK FROM CT. MEDICATED FOR PAIN. VSS
[2020-04-11] MEDS ORDERED: KETOROLAC 30 MG/1 ML IVPush ONE (16:30)
[2020-04-11] MEDS ORDERED: DIAZEPAM 5 MG/ML, 2ML IVPush ONE (16:30)
[2020-04-11] MEDS ORDERED: DIAZEPAM 5 MG/ML, 2ML ONE ×2 (16:34→16:40)
[2020-04-11] MEDS ORDERED: KETOROLAC 30 MG/1 ML ONE (16:34)
--- NOTE | 2020-04-11 16:58 | NUR ---
MEDICATED FOR PAIN. PT CO BACK SPASMS.
--- NOTE | 2020-04-11 17:28 | NUR ---
PT STATES HER PAIN IS BETTER BUT STILL SORE. AWARE. DC SOON
[2020-04-11 18:25] VITALS: BP 125/65
--- NOTE | 2020-04-11 18:29 | NUR ---
FAMILY COMING TO TAKER AWAY PT
== END 2020-04-11 19:41 | disposition home or self-care (01) ==
LOC: ED 14:39
DX: S39.012A Strain of muscle, fascia and tendon of lower back, initial encounter (principal); S33.5XXA Sprain of ligaments of lumbar spine, initial encounter; M47.816 Spondylosis without myelopathy or radiculopathy, lumbar region; R94.31 Abnormal electrocardiogram [ECG] [EKG]; I11.0 Hypertensive heart disease with heart failure; I50.9 Heart failure, unspecified; E78.5 Hyperlipidemia, unspecified; J43.9 Emphysema, unspecified; X58.XXXA Exposure to other specified factors, initial encounter; Y93.89 Activity, other specified; Y92.89 Other specified places as the place of occurrence of the external cause; Y99.8 Other external cause status
CPT/HCPCS: 36415; 74176; 80053; 81003; 83690; 85025; 93005; 96374; 96375; 96376; 99285; J1885; J2270; J2405; J3360